=== PATIENT | female | born 1965 | race Hispanic/Latino ===

== ENCOUNTER 2017-01-16 10:55 | Emergency (ER) | payer OTHER ==
--- NOTE | 2017-01-16 12:00 | CT ---
CT BRAIN NONCONTRAST: DATE: 01-16-17 HISTORY: 51-year-old female status post head trauma due to fall, resulting in left sided headache. COMPARISON: 04-10-12 FINDINGS: On the 2013 CT, there were multiple foci of intracranial hemorrhage. The largest was in the right par ietal lobe, encroaching upon the posterior temporal and occipital lobes. That has since evolved into a large region of encephalomalacia and gliosis, with associated ex vacuo dilatation of the occipital horn and trigone of the right lateral ventricle. There was a smaller region of hemorrhage in the ante rior right temporal lobe, which has become a moderate sized region of encephalomalacia and gliosis no w, with ex vacuo dilatation of the right temporal horn. There is another new finding of moderate dila tation of the lateral, third, and fourth ventricles. There is no mass effect, midline shift, or extra axial fluid collection. No displaced acute calvarial fracture. No evidence of acute intraaxial or ext raaxial hemorrhage. The brain appears significantly different from the previous CT of 2013. There is diffuse prominence of the sulcal markings, indicating parenchymal volume loss, new since the [address] CT. IMPRESSION: 1. No acute intracranial findings. 2. Large region of right parieto-occipital encephalomalacia and gliosis, due to prior hemorrhage. 3. Moderate sized region of encephalomalacia and gliosis in the anterior right temporal lobe due to p rior hemorrhage in this location. 4. Since 2013, there has been interval development of moderate, diffuse, ventriculomegaly. This is pr esumably due to central parenchymal volume loss, but the possibility of a communicating obstructive h ydrocephalus is difficult to completely exclude. AJAY Rand POS: [facility]
--- NOTE | 2017-01-16 12:05 | RAD ---
FRONTAL RADIOGRAPH CHEST PORTABLE UPRIGHT: 01/16/2017 HISTORY: Multiple falls. Headache. COMPARISON: 11/12/2013 FINDINGS: The patient is imaged in a shallow degree of inspiration. No pneumothorax is seen. there is pulmona ry vascular prominence and mild interstitial prominence in the perihilar regions in both lung bases. No lobar consolidation or alveolar edema. IMPRESSION: Mild perihilar and bilateral lower lobe interstitial density, significance uncertain given shallow in spiration. Recommend follow-up PA and lateral chest radiograph. POS: [facility]
[2017-01-16] MEDS ORDERED: Acetaminophen 325 MG TAB ONE (12:16)
[2017-01-16 12:30] LABS: Bilirubin Negative (Negative); Blood, Urine Negative (Negative); Glucose, Urine (Dipstick) Negative (Negative); Ketone, Urine Negative (Negative); Nitrite Negative (Negative); Protein, Urine (Dipstick) Negative (Neg-Trace)
[2017-01-16 12:54] LABS: #Basophils 0.1 thou/uL (0.0-0.2); #Eosinphils 0.2 thou/uL (0.0-0.7); #Lymphocytes 2.2 thou/uL (1.20-3.40); #Monocytes 0.6 thou/uL (0.11-0.59); #Neutrophils 3.3 thou/uL (1.40-6.50); %Basophils 1.2 % (0.0-1.0); %Eosinophils 2.4 % (0.0-10.0); %Monocytes 9.5 % (0.0-10.0); Hematocrit 42.5 % (36.0-47.0); Mean Platelet Volume 9.6 fL (7.4-10.4); Red Blood Cell (RBC) Count 4.44 mill/uL (4.20-5.40); White Blood Cell (WBC) Count 6.3 thou/uL (4.8-10.8)
[2017-01-16 13:08] LABS: ALT (SGPT) 77 U/L (8-55); AST (SGOT) 67 U/L (5-34); Alkaline Phosphatase 67 U/L (40-150); Anion Gap 12 mmol/L (10-20); BUN (Urea Nitrogen) 13 mg/dL (7.0-18.7); Bilirubin, Total 0.7 mg/dL (0.2-1.2); CK (CPK) 102 U/L (29-168); Calc. Creatinine Clearance 0 mL/min (70-130); Calcium 9.4 mg/dL (7.8-10.44); Carbon Dioxide 25 mmol/L (22-29); Chloride 103 mmol/L (98-107); Estimated GFR-MDRD Greater than 90; Globulin 4.3 g/dL (2.4-3.5); Magnesium 2.2 mg/dL (1.6-2.6)
[2017-01-16 13:11] LABS: Troponin I Less than 0.010 ng/mL (< 0.028)
--- NOTE | 2017-02-10 10:42 | EKG ---
Test Reason : Blood Pressure : / mmHG Vent. Rate : 067 BPM Atrial Rate : 067 BPM P-R Int : 148 ms QRS Dur : 086 ms QT Int : 400 ms P-R-T Axes : 033 006 026 degrees QTc Int : 422 ms Normal sinus rhythm Normal ECG Confirmed by YAHAIRA AIKEN M.D. ([id number]), news video editor RISSA WARD ([id number]) on 02/10/2017 10:42:11 AM Referred By: Confirmed By:YAHAIRA AIKEN M.D.
== END 2017-01-16 15:21 | disposition left against medical advice (07) ==
LOC: ERS 10:55
DX: S09.90XA Unspecified injury of head, initial encounter (principal); K21.9 Gastro-esophageal reflux disease without esophagitis; E03.9 Hypothyroidism, unspecified; F41.9 Anxiety disorder, unspecified; F32.9 Major depressive disorder, single episode, unspecified; Z87.891 Personal history of nicotine dependence; Z91.81 History of falling; Z86.73 Personal history of transient ischemic attack (TIA), and cerebral infarction without residual deficits; W01.10XA Fall on same level from slipping, tripping and stumbling with subsequent striking against unspecified object, initial encounter
CPT/HCPCS: 70450; 71010; 80053; 81003; 82553; 83735; 84443; 84484; 85025; 93005

== ENCOUNTER 2017-02-14 10:56 | Outpatient (CLI) | payer OTHER ==
[2017-02-14 12:02] LABS: #Basophils 0.1 thou/uL (0.0-0.2); #Eosinphils 0.2 thou/uL (0.0-0.7); #Lymphocytes 1.8 thou/uL (1.20-3.40); #Monocytes 0.5 thou/uL (0.11-0.59); #Neutrophils 2.3 thou/uL (1.40-6.50); %Basophils 1.2 % (0.0-1.0); %Eosinophils 3.4 % (0.0-10.0); %Lymphocytes 37.5 % (21.0-51.0); %Neutrophils 47.9 % (42.0-75.0); Hemoglobin 14.6 g/dL (12.0-16.0); Mean Platelet Volume 8.3 fL (7.4-10.4); Platelet Count 135 thou/uL (130-400); RBC Distribution Width 12.5 % (11.5-14.5); Red Blood Cell (RBC) Count 4.43 mill/uL (4.20-5.40); White Blood Cell (WBC) Count 4.8 thou/uL (4.8-10.8)
[2017-02-14 12:08] LABS: BHCG - Serum Negative (NEGATIVE); Pregs Control Background? CLEAR/WHITE (CLR/WHITE); Pregs Control Bar Appear? YES (CONTROL BAR)
[2017-02-14 12:19] LABS: INR-International Normal Ratio 1.3; Prothrombin Time 15.9 SEC (12.0-14.7)
[2017-02-14 12:22] LABS: Anion Gap 14 mmol/L (10-20); BUN (Urea Nitrogen) 10 mg/dL (7.0-18.7); Calc. Creatinine Clearance 0 mL/min (70-130); Calcium 9.9 mg/dL (7.8-10.44); Carbon Dioxide 21 mmol/L (22-29); Chloride 107 mmol/L (98-107); Estimated GFR-MDRD Greater than 90; Glucose 98 mg/dL (70-105); Potassium 4.1 mmol/L (3.5-5.1); Sodium 138 mmol/L (136-145)
--- NOTE | 2017-02-14 12:46 | RAD ---
PA AND LATERAL VIEWS OF THE CHEST: History: Pre-operative evaluation. FINDINGS: Comparison is made with exam of 02-17-13. The heart size is borderline. The lungs are expanded without focal areas of consolidation, pneumothor ax, or pleural effusions. No acute osseous abnormalities are seen. IMPRESSION: No radiographic evidence of acute cardiopulmonary process. POS: [facility]
--- NOTE | 2017-02-22 19:32 | EKG ---
Test Reason : Blood Pressure : / mmHG Vent. Rate : 073 BPM Atrial Rate : 073 BPM P-R Int : 142 ms QRS Dur : 090 ms QT Int : 402 ms P-R-T Axes : 050 024 025 degrees QTc Int : 442 ms Normal sinus rhythm Normal ECG When compared with ECG of 16-JAN-2017 11:53, No significant change was found Confirmed by YELENA DC ([id number]) on 02/22/2017 7:31:55 PM Referred By: MAHAMED Confirmed By:YELENA DC
== END 2017-02-14 10:57 | disposition home or self-care (01) ==
LOC: LABBT 10:56
PROVIDERS: ATTEND Orthopaedic Surgery Hand Surgery
DX: Z01.818 Encounter for other preprocedural examination (principal); G81.94 Hemiplegia, unspecified affecting left nondominant side; M24.50 Contracture, unspecified joint
CPT/HCPCS: 71046; 80048; 84703; 85025; 85610; 93005; 93010

== ENCOUNTER → 2017-02-20 | Day surgery (SDC) | payer OTHER ==
[2017-02-14 11:28] VITALS: BMI 41.8
[~2017-02-20] MED LIST: Bacitracin Zinc Ointment 30 gm TUBE ONE; Betamet Acet/Betamet Na Ph 30 MG/5 ML VIAL ONE; Bupivacaine PF 0.5% 30 ML VIAL ONE; CEFAZOLIN/Water 2 GM/20 ML SYRINGE ONE; Fentanyl 100 MCG/2 ML VIAL ONE; HYDROcodone/Acetaminophen 5/325 mg Tablet ONE; HYDROmorphone 2 MG/ML VIAL SLOW IVP PRN; Ketorolac Tromethamine 30 MG/ML VIAL ONE; Lidocaine 1% PF 5 ML VIAL ONE; Meperidine HCl/PF 25 MG/ML VIAL SLOW IVP PRN; Midazolam HCl 2 mg/2 ml Vial ONE; Morphine Sulfate 2 MG/ML SYRINGE SLOW IVP PRN; Promethazine HCl 25 MG/ML VIAL SLOW IVP PRN; Propofol 200 MG/20 ML VIAL ONE
--- NOTE | 2017-02-21 14:02 | OP ---
DATE OF SURGERY: 02/20/2017 PREOPERATIVE DIAGNOSES: Metacarpophalangeal joint contracture left small finger; metacarpophalangeal joint contracture left ring finger; metacarpophalangeal joint left middle finger, all secondary to h emiplegia. POSTOPERATIVE DIAGNOSES: Metacarpophalangeal joint contracture left small finger; metacarpophalangea l joint contracture left ring finger; metacarpophalangeal joint left middle finger, all secondary to hemiplegia with tight volar plate, volar capsule, and A1 karina. PROCEDURES PERFORMED: At the right small finger: A. A1 karina release. B. Volar plate release. C. Capsulotomy metacarpophalangeal joint volar. At the right ring finger: A. Ring finger A1 karina release. B. Ring finger volar metacarpophalangeal joint plate release. C. Ring finger volar capsulotomy . At right middle finger: A. A1 karina release, right middle finger metacarpophalangeal joint. B. Volar plate release, right middle finger metacarpophalangeal joint. C. Right middle finger, volar capsulotomy metacarpophalangeal joint. TOURNIQUET TIME: 32 minutes. ESTIMATED BLOOD LOSS: 5 mL INDICATIONS: As listed above. FINDINGS: Very tight volar capsule, collaterals, and volar plate. ANESTHESIA: General LMA technique augmented by 20 mL 0.5% Marcaine block total for all 3 digits. DESCRIPTION OF PROCEDURE: After successful general endotracheal anesthesia, the patient's limb was p repped and draped. A single incision was made over the radial aspect of the middle finger at the met acarpophalangeal joint crease line to indicate the skin and subcutaneous tissue. We found the neurov ascular bundles and protected them and dissected down to the A1 karina. We released A1 karina. We r etracted the flexor tendons ulnarly first, released the volar plate, and then made a volar capsulotom y. Once medial capsulotomy, the finger which at that point could only extend to -6 degrees now was e asily straightened to 0. We then made a similar longitudinal incision shelter between the ring finger, small finger, and disse cted first radially, identified the ring finger. Neurovascular bundles performed. The mirror image procedure that was done at the right middle finger metacarpophalangeal joint; which will all free the A1 karina release, volar plate release, and volar capsulotomy of metacarpophalangeal joint. We then dissected ulnarly, saw the ulnar neurovascular bundle and brought it radially, visualized A1 karina, small finger released it. We then visualized a very tight volar plate and released it with a zigzag incision and therefore made and then followed that with a metacarpophalangeal joint capsulotomy. He re, we removed a small amount of capsule as well to perform a capsulectomy of 3 mm because this was t he tightest joint, and in order to achieve extension we had to do this. Now could easily extend with out any spring back to 20 degrees hyperextension to the metacarpophalangeal joints of all these digit s. The PIP joint easily extended to 0 degrees without any undue tension. We deflated tourniquet, obtained hemostasis, closed each wound individually with interrupted 4-0 nylo n simple pattern, then gave the remaining injection of 0.5% Marcaine with epinephrine gave a total of 20 mL between the two incisions. Bulky dressing applied with a splint in the MP joints at 0 degrees extension, PIP joints at 0, and DIP joints free. She had no complications.
== END ==
LOC: SDC 09:59
PROVIDERS: ATTEND Orthopaedic Surgery Hand Surgery
PROC: 0LN80ZZ Release Left Hand Tendon, Open Approach (ICD-10-PCS; principal; 2017-02-20)
PROC: 0RNV0ZZ Release Left Metacarpophalangeal Joint, Open Approach (ICD-10-PCS; principal; 2017-02-20)
DX: G81.94 Hemiplegia, unspecified affecting left nondominant side (principal); M24.50 Contracture, unspecified joint; M20.022 Boutonniere deformity of left finger(s); R03.0 Elevated blood-pressure reading, without diagnosis of hypertension; K21.9 Gastro-esophageal reflux disease without esophagitis; F32.9 Major depressive disorder, single episode, unspecified; F17.200 Nicotine dependence, unspecified, uncomplicated; Z79.899 Other long term (current) drug therapy; Z93.0 Tracheostomy status; Z98.890 Other specified postprocedural states; Z86.19 Personal history of other infectious and parasitic diseases
CPT/HCPCS: J0702; J1885; J2001; J2250; J2704; J3010; S0020

== ENCOUNTER 2017-02-24 14:01 | Emergency (ER) | payer OTHER | END 2017-02-24 14:56 | disposition home or self-care (01) | LOC: ERS 14:01 | DX: M96.840 Postprocedural hematoma of a musculoskeletal structure following a musculoskeletal system procedure (principal); M96.830 Postprocedural hemorrhage of a musculoskeletal structure following a musculoskeletal system procedure; M96.89 Other intraoperative and postprocedural complications and disorders of the musculoskeletal system; K21.9 Gastro-esophageal reflux disease without esophagitis; K59.00 Constipation, unspecified; E03.9 Hypothyroidism, unspecified; D64.9 Anemia, unspecified; F41.9 Anxiety disorder, unspecified; F32.9 Major depressive disorder, single episode, unspecified | CPT/HCPCS: 99283 ==

== ENCOUNTER 2017-03-20 13:09 | Emergency (ER) | payer OTHER | END 2017-03-20 15:44 | disposition home or self-care (01) | LOC: ERS 13:09 | DX: Z48.817 Encounter for surgical aftercare following surgery on the skin and subcutaneous tissue (principal); K21.9 Gastro-esophageal reflux disease without esophagitis; E03.9 Hypothyroidism, unspecified; F41.9 Anxiety disorder, unspecified; F32.9 Major depressive disorder, single episode, unspecified; K59.00 Constipation, unspecified; Z86.73 Personal history of transient ischemic attack (TIA), and cerebral infarction without residual deficits | CPT/HCPCS: 99283 ==

== ENCOUNTER 2017-09-27 12:55 | Outpatient (CLI) | payer OTHER ==
--- NOTE | 2017-10-01 14:05 | MMO ---
BILATERAL DIGITAL SCREENING MAMMOGRAMS: Date: 09/27/17 HISTORY: 52-year-old female presents for digital screening mammogram. COMPARISON: 06/22/14. FINDINGS: This patient's mammogram was interpreted with the assistance of computer-aided detection. Scattered areas of fibroglandular density are noted bilaterally. There is some stable bilateral paren chymal density asymmetries. No direct or indirect evidence of malignancy. IMPRESSION: BIRADS 2: Benign Finding(s) Continue routine screening. POS: [facility]
== END 2017-09-27 12:56 | disposition home or self-care (01) ==
LOC: SCSMAMMO 12:55
PROVIDERS: ATTEND Family Medicine
DX: Z12.31 Encounter for screening mammogram for malignant neoplasm of breast (principal)
CPT/HCPCS: 77067

== ENCOUNTER 2017-12-09 19:54 | Emergency (ER) | payer OTHER ==
--- NOTE | 2017-12-09 21:30 | RAD ---
LEFT SHOULDER THREE VIEWS: History: Fall. Left shoulder injury. FINDINGS: Acromioclavicular and glenohumeral alignment are maintained. No acute fracture or dislocation. Old le ft rib fractures. IMPRESSION: No acute osseous abnormalities are demonstrated. POS: [facility]
--- NOTE | 2017-12-09 22:17 | CT ---
CT HEAD NONCONTRAST: History: Fall. Head injury. Comparison: 01-16-17 FINDINGS: There is no evidence of acute intracranial hemorrhage. 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 Diffuse cortical atrophy. There is no mass effect or shift of midline structures. Visualized paranasal sinuses remain well aerated. IMPRESSION: Chronic type findings are stable. No acute intracranial abnormalities are demonstrated. POS: [facility]
--- NOTE | 2017-12-09 22:29 | CT ---
CT CERVICAL SPINE: Technique: Multiple axial images were obtained through the cervical with multiplanar reconstructions. History: Fall with injury to neck. Comparison: Cervical spine CT, 04-07-12 FINDINGS: There are degenerative changes at C5-6. There is loss of disc space with hypertrophic spurring and po sterior spondylosis. There is mild retrolisthesis at C5 on C6 which was present on the 2013 exam. Sli ght anterior wedging of C6 associated with the degenerative change. There is no evidence of acute fra cture identified. IMPRESSION: Degenerative changes at C5-6 as described. No evidence of acute fracture. POS: [facility]
== END 2017-12-09 22:58 | disposition home or self-care (01) ==
LOC: ERS 19:54
DX: S00.03XA Contusion of scalp, initial encounter (principal); S40.012A Contusion of left shoulder, initial encounter; K21.9 Gastro-esophageal reflux disease without esophagitis; E03.9 Hypothyroidism, unspecified; D64.9 Anemia, unspecified; F41.9 Anxiety disorder, unspecified; F32.9 Major depressive disorder, single episode, unspecified; Z86.73 Personal history of transient ischemic attack (TIA), and cerebral infarction without residual deficits; W01.198A Fall on same level from slipping, tripping and stumbling with subsequent striking against other object, initial encounter; Y92.481 Parking lot as the place of occurrence of the external cause
CPT/HCPCS: 70450; 72125

== ENCOUNTER 2018-03-10 09:24 | Emergency (ER) | payer OTHER ==
--- NOTE | 2018-03-10 11:12 | RAD ---
RADIOGRAPH CHEST 2 VIEWS: HISTORY: A 52-year-old female with a cough. FINDINGS: The thoracic aorta is tortuous and ectatic. There is no evidence of air space density, pneumothorax, or pulmonary edema. There is no cardiomegaly or pleural effusion. IMPRESSION: 1) No acute cardiopulmonary findings. 2) Ectasia of thoracic aorta. jodi [] POS: [facility]
== END 2018-03-10 11:36 | disposition home or self-care (01) ==
LOC: ERS 09:24
DX: R05 Cough (principal); R11.0 Nausea; Z86.73 Personal history of transient ischemic attack (TIA), and cerebral infarction without residual deficits; K21.9 Gastro-esophageal reflux disease without esophagitis; E03.9 Hypothyroidism, unspecified; D64.9 Anemia, unspecified; F41.9 Anxiety disorder, unspecified; F32.9 Major depressive disorder, single episode, unspecified
CPT/HCPCS: 71046; 87804

== ENCOUNTER 2019-04-30 13:24 | Outpatient (CLI) | payer OTHER ==
--- NOTE | 2019-04-30 14:48 | MMO ---
Bilateral MAMMO Bilat Screen [facility]DI. CLINICAL HISTORY: Patient is 53 years old and is seen for screening. The patient has no family history of breast cancer. The patient has no personal history of cancer. VIEWS: The views performed were: bilateral craniocaudal and bilateral mediolateral oblique. FILMS COMPARED: The present examination has been compared to prior imaging studies performed at [facility] on 09/27/2017, and at [facility] on 06/22/2014. This study has been interpreted with the assistance of computer-aided detection. MAMMOGRAM FINDINGS: There are scattered fibroglandular densities. There are no suspicious masses, suspicious calcifications, or new areas of architectural distortion. IMPRESSION: THERE IS NO MAMMOGRAPHIC EVIDENCE OF MALIGNANCY. A ROUTINE FOLLOW-UP MAMMOGRAM IN 1 YEAR IS RECOMMENDED. ACR BI-RADS Category 1 - Negative MAMMOGRAPHY NOTE: 1. A negative mammogram report should not delay a biopsy if a dominant of clinically suspicious mass is present. 2. Approximately 10% to 15% of breast cancers are not detected by mammography. 3. Adenosis and dense breasts may obscure an underlying neoplasm. Reported by: HIRA ALVES MD Electonically Signed: [id number]
== END 2019-04-30 13:25 | disposition home or self-care (01) ==
LOC: BICMAMMO 13:24
PROVIDERS: ATTEND Family Medicine
DX: Z12.31 Encounter for screening mammogram for malignant neoplasm of breast (principal)
CPT/HCPCS: 77067

== ENCOUNTER 2020-08-03 11:11 | Outpatient (CLI) | payer MEDICAID | END 2020-08-03 11:12 | disposition home or self-care (01) | LOC: BICMAMMO 11:11 | PROVIDERS: ATTEND Family Medicine | DX: Z12.31 Encounter for screening mammogram for malignant neoplasm of breast (principal) | CPT/HCPCS: 77067 ==

== ENCOUNTER 2021-08-18 13:03 | Outpatient (CLI) | payer OTHER | END 2021-08-18 13:04 | disposition home or self-care (01) | LOC: MERGE 13:03 → BICMAMMO 13:03 | PROVIDERS: ATTEND Family Medicine | DX: Z12.31 Encounter for screening mammogram for malignant neoplasm of breast (principal) | CPT/HCPCS: 77067 ==

== ENCOUNTER 2021-10-31 11:55 | Emergency (ER) | payer OTHER | END 2021-10-31 12:56 | disposition left against medical advice (07) | LOC: ERS 11:55 | DX: Z53.21 Procedure and treatment not carried out due to patient leaving prior to being seen by health care provider (principal) ==

== ENCOUNTER 2021-11-08 09:30 | Outpatient (CLI) | payer OTHER | END 2021-11-08 09:31 | disposition home or self-care (01) | LOC: BICULT 09:30 | PROVIDERS: ATTEND Family Medicine | DX: K74.69 Other cirrhosis of liver (principal); N28.1 Cyst of kidney, acquired | CPT/HCPCS: 76705 ==

== ENCOUNTER 2022-03-07 11:11 | Emergency (ER) | payer OTHER | END 2022-03-07 12:53 | disposition home or self-care (01) | LOC: ERS 11:11 | DX: S01.01XA Laceration without foreign body of scalp, initial encounter (principal); I10 Essential (primary) hypertension; W19.XXXA Unspecified fall, initial encounter; Y92.009 Unspecified place in unspecified non-institutional (private) residence as the place of occurrence of the external cause | CPT/HCPCS: 70450 ==

== ENCOUNTER 2022-03-22 08:48 | Emergency (ER) | payer OTHER | END 2022-03-22 10:32 | disposition home or self-care (01) | LOC: ERS 08:48 | DX: S01.01XD Laceration without foreign body of scalp, subsequent encounter (principal); I10 Essential (primary) hypertension; Z79.899 Other long term (current) drug therapy ==

== ENCOUNTER 2022-09-20 06:59 | Outpatient (CLI) | payer OTHER | END 2022-09-20 07:00 | disposition home or self-care (01) | LOC: BICULT 06:59 | PROVIDERS: ATTEND Physician Assistant Medical | DX: B18.2 Chronic viral hepatitis C (principal); K74.60 Unspecified cirrhosis of liver; S06.9XAA Unspecified intracranial injury with loss of consciousness status unknown, initial encounter | CPT/HCPCS: 76705 ==

== ENCOUNTER 2022-10-23 09:46 | Outpatient (CLI) | payer OTHER | END 2022-10-23 09:47 | disposition home or self-care (01) | LOC: RAD 09:46 | PROVIDERS: ATTEND Family Medicine | DX: Z11.1 Encounter for screening for respiratory tuberculosis (principal); J98.4 Other disorders of lung | CPT/HCPCS: 71046 ==

== ENCOUNTER 2022-11-12 17:52 | Emergency (ER) | payer OTHER ==
[2022-11-12] MEDS ORDERED: Proparacaine 0.5% Opth 15 ML BOT ONE (18:38)
[2022-11-12] MEDS ORDERED: Fluorescein Opthalmic Strip ONE (18:38)
== END 2022-11-12 19:19 | disposition home or self-care (01) ==
LOC: ERS 17:52
DX: H57.12 Ocular pain, left eye (principal); I10 Essential (primary) hypertension; Z79.899 Other long term (current) drug therapy
CPT/HCPCS: 99283

== ENCOUNTER 2023-07-06 18:48 | Emergency (ER) | payer OTHER ==
[2023-07-06 21:03] LABS: #Basophils 0.03 10x3/uL (0.0-0.2); %Basophils 0.7 % (0.0-1.0); %Eosinophils 4.1 % (0.0-10.0); %Monocytes 13.7 % (0.0-10.0); %Neutrophils 40.3 % (42.0-75.0); Hematocrit 39.1 % (36.0-47.0); Hemoglobin 13.3 g/dL (12.0-16.0); Mean Corpuscular Hemoglobin 30.5 pg (27.0-31.0); Mean Corpuscular Volume 89.7 fL (78.0-98.0); Platelet Count 140 10x3/uL (130-400); Red Blood Cell (RBC) Count 4.36 mill/uL (4.20-5.40)
[2023-07-06 21:03] LABS: Influenza A by NAA Not Detected (NotDetected); Influenza B by NAA Not Detected (NotDetected); SARS-CoV-2 NAA Rapid Test DETECTED (NotDetected)
[2023-07-06 21:19] LABS: ALT (SGPT) 21 U/L (8-55); AST (SGOT) 27 U/L (5-34); Albumin 3.4 g/dL (3.5-5.0); Alkaline Phosphatase 57 U/L (40-110); Anion Gap 12 mmol/L (10-20); BUN (Urea Nitrogen) 11 mg/dL (9.8-20.1); Bilirubin, Total 0.5 mg/dL (0.2-1.2); Calc. Creatinine Clearance 0 mL/min (70-130); Carbon Dioxide 24 mmol/L (22-29); Chloride 108 mmol/L (98-107); Estimated GFR 93; Globulin 3.8 g/dL (2.4-3.5); Glucose 113 mg/dL (70-105); Potassium 3.9 mmol/L (3.5-5.1); Protein, Total 7.2 g/dL (6.0-8.3); Sodium 140 mmol/L (136-145)
[2023-07-06 21:24] LABS: Troponin I Less than 0.010 ng/mL (< 0.028)
[2023-07-06] MEDS ORDERED: Furosemide 100 MG (10 mL) VIAL ONE (22:15)
== END 2023-07-07 00:57 | disposition home or self-care (01) ==
LOC: ERS 18:48
DX: U07.1 COVID-19 (principal); I11.0 Hypertensive heart disease with heart failure; I50.9 Heart failure, unspecified
CPT/HCPCS: 71045; 80053; 83880; 84484; 85025; 93005; 96374; J1940

== ENCOUNTER 2023-08-17 08:50 | Outpatient (CLI) | payer OTHER | END 2023-08-17 08:51 | disposition home or self-care (01) | LOC: BICULT 08:50 | PROVIDERS: ATTEND Physician Assistant Medical | DX: Z12.11 Encounter for screening for malignant neoplasm of colon (principal); K74.60 Unspecified cirrhosis of liver; B18.2 Chronic viral hepatitis C; S06.9XAA Unspecified intracranial injury with loss of consciousness status unknown, initial encounter | CPT/HCPCS: 76705 ==

== ENCOUNTER 2023-09-05 03:47 | Emergency (ER) | payer OTHER ==
[2023-09-05] MEDS ORDERED: valACYclovir 500 MG TAB ONE (04:45)
[2023-09-05] MEDS ORDERED: predniSONE 20 MG TAB ONE (04:45)
== END 2023-09-05 06:14 ==
LOC: ERS 03:47
DX: G51.0 Bell's palsy (principal); I10 Essential (primary) hypertension
CPT/HCPCS: 99284; J7512

== ENCOUNTER 2023-12-26 06:06 | Inpatient (IN) | payer OTHER ==
[2023-12-26 07:54] LABS: #Basophils 0.04 10x3/uL (0.0-0.2); %Basophils 0.9 % (0.0-1.0); %Eosinophils 6.7 % (0.0-10.0); %Lymphocytes 30.2 % (21.0-51.0); %Monocytes 15.8 % (0.0-10.0); %Neutrophils 46.4 % (42.0-75.0); ALT (SGPT) 19 U/L (8-55); AST (SGOT) 24 U/L (5-34); Albumin 3.4 g/dL (3.5-5.0); Alkaline Phosphatase 65 U/L (40-110); Anion Gap 12 mmol/L (10-20); BUN (Urea Nitrogen) 11 mg/dL (9.8-20.1); Calc. Creatinine Clearance 0 mL/min (70-130); Calcium 8.6 mg/dL (7.8-10.44); Carbon Dioxide 28 mmol/L (22-29); Chloride 102 mmol/L (98-107); Estimated GFR 90; Globulin 4.1 g/dL (2.4-3.5); Glucose 119 mg/dL (70-105); Hematocrit 40.8 % (36.0-47.0); Magnesium 2.1 mg/dL (1.6-2.6); Mean Corpuscular HGB CONC 34.3 g/dL (32.0-36.0); Mean Corpuscular Hemoglobin 29.8 pg (27.0-31.0); Mean Corpuscular Volume 86.8 fL (78.0-98.0); Mean Platelet Volume 9.9 fL (7.4-10.4); Platelet Count 137 10x3/uL (130-400); Potassium 3.4 mmol/L (3.5-5.1); Protein, Total 7.5 g/dL (6.0-8.3); RBC Distribution Width 12.9 % (11.5-14.5); Sodium 139 mmol/L (136-145)
[2023-12-26 08:00] LABS: Troponin I Less than 0.010 ng/mL (< 0.028)
[2023-12-26 08:01] LABS: INR-International Normal Ratio 1.1; Prothrombin Time 14.4 sec (12.0-14.7)
[2023-12-26 08:02] LABS: PTT 31.4 sec (22.9-36.1)
[2023-12-26] MEDS ORDERED: Furosemide 40 MG (4 mL) VIAL ONE (08:37)
[2023-12-26] MEDS ORDERED: Ondansetron ODT 4 MG TAB PO PRN (10:34)
[2023-12-26] MEDS ORDERED: Senokot S 8.6-50 MG TAB PO PRN (10:34)
[2023-12-26] MEDS ORDERED: Electrolyte Replacement Protocol FS PRN (11:00)
[2023-12-26] MEDS ORDERED: Furosemide 20 MG (2 mL) VIAL ONE (14:53)
[2023-12-26] MEDS ORDERED: Potassium Chloride 20 MEQ TAB ONE (14:53)
[2023-12-26] MEDS: Potassium Chloride 20 MEQ TAB PO SCH (14:57)
[2023-12-26] MEDS: Furosemide 100 MG (10 mL) VIAL SLOW IVP SCH (15:00)
[2023-12-26] MEDS: Cephalexin 250 MG CAP PO SCH (17:32)
[2023-12-26] MEDS: FLU (Fluarix Triv) TS24-25(6MOS UP)/PF 45 MCG/0.5 ML Syringe IM ONE (17:32)
[2023-12-26] MEDS: Acetaminophen 325 MG TAB PO PRN (19:53)
[2023-12-26] MEDS: Aripiprazole 10 MG TAB PO SCH (21:31)
[2023-12-26] MEDS: Melatonin 3 MG TAB PO SCH (21:31)
[2023-12-26] MEDS: traZODone HCl 50 MG TAB PO SCH (21:31)
[2023-12-27] MEDS: Furosemide 40 MG (4 mL) VIAL SLOW IVP SCH (05:23)
[2023-12-27 06:52] LABS: #Basophils 0.03 10x3/uL (0.0-0.2); %Basophils 0.6 % (0.0-1.0); %Eosinophils 4.6 % (0.0-10.0); %Lymphocytes 24.1 % (21.0-51.0); %Monocytes 15.6 % (0.0-10.0); %Neutrophils 54.9 % (42.0-75.0); Hematocrit 41.3 % (36.0-47.0); Mean Corpuscular HGB CONC 33.9 g/dL (32.0-36.0); Mean Corpuscular Hemoglobin 29.5 pg (27.0-31.0); Mean Corpuscular Volume 86.9 fL (78.0-98.0); Mean Platelet Volume 10.3 fL (7.4-10.4); Platelet Count 133 10x3/uL (130-400); RBC Distribution Width 13.1 % (11.5-14.5); Red Blood Cell (RBC) Count 4.75 mill/uL (4.20-5.40)
[2023-12-27 06:53] LABS: Anion Gap 13 mmol/L (10-20); BUN (Urea Nitrogen) 12 mg/dL (9.8-20.1); Calc. Creatinine Clearance 145 mL/min (70-130); Carbon Dioxide 28 mmol/L (22-29); Chloride 101 mmol/L (98-107); Estimated GFR 94; Glucose 122 mg/dL (70-105); Potassium 3.7 mmol/L (3.5-5.1); Sodium 138 mmol/L (136-145)
[2023-12-27] MEDS: Enoxaparin 40 MG (0.4 mL) SYRINGE SC SCH (09:44)
[2023-12-27] MEDS: Mirabegron ER 25 MG ER.TAB PO SCH (09:44)
[2023-12-27] MEDS: hydrOXYzine Pamoate 25 mg Capsule PO SCH (09:44)
[2023-12-27] MEDS: Gabapentin 300 MG CAP PO SCH (09:45)
[2023-12-27] MEDS: Spironolactone 25 MG TAB PO SCH (09:45)
[2023-12-27] MEDS: Escitalopram Oxalate 20 mg Tablet PO SCH (09:45)
[2023-12-28 04:32] LABS: #Basophils 0.03 10x3/uL (0.0-0.2); %Basophils 0.5 % (0.0-1.0); %Eosinophils 6.4 % (0.0-10.0); %Lymphocytes 33.1 % (21.0-51.0); %Monocytes 15.2 % (0.0-10.0); %Neutrophils 44.6 % (42.0-75.0); Hematocrit 40.3 % (36.0-47.0); Hemoglobin 13.7 g/dL (12.0-16.0); Mean Corpuscular Hemoglobin 29.7 pg (27.0-31.0); Mean Corpuscular Volume 87.2 fL (78.0-98.0); Mean Platelet Volume 10.3 fL (7.4-10.4); Platelet Count 128 10x3/uL (130-400); RBC Distribution Width 12.8 % (11.5-14.5); Red Blood Cell (RBC) Count 4.62 mill/uL (4.20-5.40)
[2023-12-28 04:44] LABS: Anion Gap 13 mmol/L (10-20); BUN (Urea Nitrogen) 13 mg/dL (9.8-20.1); Calc. Creatinine Clearance 153 mL/min (70-130); Calcium 8.8 mg/dL (7.8-10.44); Carbon Dioxide 25 mmol/L (22-29); Chloride 100 mmol/L (98-107); Estimated GFR 101; Glucose 170 mg/dL (70-105); Potassium 3.2 mmol/L (3.5-5.1); Sodium 135 mmol/L (136-145)
[2023-12-28 05:10] VITALS: BMI 41.3
[2023-12-28] MEDS: Potassium Bicarbonate/Cit Ac 20 MEQ TAB PO SCH (08:32)
[2023-12-28 09:28] VITALS: BP 108/59; TEMP 98
== END 2023-12-28 16:17 | DRG 291 ==
LOC: ERS 06:06 → ERHOLD 10:49 → T4-B 15:58 → OBSVTOIN 12-28 08:28
PROVIDERS: ADMIT Internal Medicine; ATTEND Hospitalist
DX: I11.0 Hypertensive heart disease with heart failure (principal); I50.33 Acute on chronic diastolic (congestive) heart failure; L03.116 Cellulitis of left lower limb; Z68.41 Body mass index [BMI] 40.0-44.9, adult; Z90.49 Acquired absence of other specified parts of digestive tract; F41.9 Anxiety disorder, unspecified; F32.A Depression, unspecified; E66.01 Morbid (severe) obesity due to excess calories; E87.6 Hypokalemia; Z79.899 Other long term (current) drug therapy
CPT/HCPCS: 36415; 71045; 80048; 80053; 83735; 83880; 84443; 84484; 85025; 85610; 85730; 90656; 93005; 93970; 96374; J1650; J1940; Q0177

== ENCOUNTER 2024-01-31 06:47 | Inpatient (IN) | payer OTHER ==
[2024-01-31] MEDS ORDERED: Ipratropium/Albuterol 3 ML NEB ONE (07:56)
[2024-01-31 08:10] LABS: #Basophils Less than 0.03 10x3/uL (0.0-0.2); %Basophils 0.3 % (0.0-1.0); %Eosinophils 1.3 % (0.0-10.0); %Lymphocytes 11.8 % (21.0-51.0); %Monocytes 11.3 % (0.0-10.0); %Neutrophils 74.6 % (42.0-75.0); Hemoglobin 14.2 g/dL (12.0-16.0); Mean Corpuscular HGB CONC 34.6 g/dL (32.0-36.0); Mean Corpuscular Hemoglobin 29.8 pg (27.0-31.0); Mean Corpuscular Volume 86.1 fL (78.0-98.0); Mean Platelet Volume 10.2 fL (7.4-10.4); Platelet Count 81 10x3/uL (130-400); RBC Distribution Width 12.9 % (11.5-14.5); Red Blood Cell (RBC) Count 4.76 mill/uL (4.20-5.40)
[2024-01-31 08:21] LABS: ALT (SGPT) 20 U/L (8-55); AST (SGOT) 42 U/L (5-34); Albumin 3.2 g/dL (3.5-5.0); Alkaline Phosphatase 54 U/L (40-110); Anion Gap 15 mmol/L (10-20); BUN (Urea Nitrogen) 9 mg/dL (9.8-20.1); Bilirubin, Total 0.7 mg/dL (0.2-1.2); Calc. Creatinine Clearance 0 mL/min (70-130); Calcium 8.7 mg/dL (7.8-10.44); Carbon Dioxide 21 mmol/L (22-29); Chloride 103 mmol/L (98-107); Estimated GFR 91; Globulin 4.6 g/dL (2.4-3.5); Glucose 123 mg/dL (70-105); Potassium 4.4 mmol/L (3.5-5.1); Protein, Total 7.8 g/dL (6.0-8.3); Sodium 135 mmol/L (136-145)
[2024-01-31 10:29] LABS: Bacteria/HPF 4+ HPF (None Seen); Bilirubin Negative (Negative); Blood, Urine Negative (Negative); CAUTI Indications for Culture Dysuria,urgency,freq; Clarity Turbid (Clear); Glucose, Urine (Dipstick) Normal (Negative); Ketone, Urine Negative (Negative); Leukocyte 250 Leu/uL (Negative); Nitrite 2+ (Negative); Protein, Urine (Dipstick) 30 mg/dL (Neg-Trace); RBC/HPF 0-3 HPF (0-3); Specific Gravity, Urine 1.026 (1.002-1.036); Squamous Epithelial None Seen HPF (0-3); Urobilinogen Normal mg/dL (Less than 2); WBC/HPF Greater than 50 HPF (0-3)
[2024-01-31 10:30] LABS: Urine Culture Reflex Yes Yes
[2024-01-31] MEDS ORDERED: cefTRIAXone (ROCEPHIN) 2 GM VIAL ONE (11:06)
[2024-01-31] MEDS ORDERED: Sodium Chloride 0.9% 100 ML ONE (11:06)
[2024-01-31] MEDS ORDERED: Ondansetron ODT 4 MG TAB PO PRN (11:18)
[2024-01-31] MEDS ORDERED: Ondansetron PF 4 MG/2 ML Vial IVP PRN (11:18)
[2024-01-31] MEDS: Acetaminophen 325 MG TAB PO PRN (15:09)
[2024-01-31] MEDS: Famotidine 20 MG TAB PO SCH (21:50)
[2024-02-01] MEDS: Melatonin 3 MG TAB PO SCH (00:49)
[2024-02-01 05:19] LABS: Hemoglobin 12.5 g/dL (12.0-16.0); Mean Corpuscular HGB CONC 34.7 g/dL (32.0-36.0); Mean Corpuscular Hemoglobin 29.7 pg (27.0-31.0); Mean Corpuscular Volume 85.5 fL (78.0-98.0); Red Blood Cell (RBC) Count 4.21 mill/uL (4.20-5.40)
[2024-02-01 05:20] LABS: #Basophils Less than 0.03 10x3/uL (0.0-0.2); %Basophils 0.3 % (0.0-1.0); %Eosinophils 2.1 % (0.0-10.0); %Neutrophils 69.3 % (42.0-75.0); Mean Platelet Volume 10.7 fL (7.4-10.4); Platelet Count 86 10x3/uL (130-400); RBC Distribution Width 13.1 % (11.5-14.5)
[2024-02-01 06:01] LABS: Anion Gap 11 mmol/L (10-20); BUN (Urea Nitrogen) 10 mg/dL (9.8-20.1); Calc. Creatinine Clearance 0 mL/min (70-130); Calcium 8.3 mg/dL (7.8-10.44); Carbon Dioxide 26 mmol/L (22-29); Chloride 103 mmol/L (98-107); Estimated GFR 94; Glucose 114 mg/dL (70-105); Sodium 137 mmol/L (136-145)
[2024-02-01] MEDS: Enoxaparin 40 MG (0.4 mL) SYRINGE SC SCH (07:05)
[2024-02-01] MEDS: FLU (Fluarix Triv) TS24-25(6MOS UP)/PF 45 MCG/0.5 ML Syringe IM ONE (07:05)
[2024-02-01] MEDS: cefTRIAXone\\ROCEPHIN 1 GM in Sodium Chloride 0.9% 100 ML IVPB SCH (12:45)
[2024-02-02 05:34] LABS: Influenza A by NAA DETECTED (NotDetected); Influenza B by NAA Not Detected (NotDetected); SARS-CoV-2 NAA Rapid Test Not Detected (NotDetected)
[2024-02-02 10:58] VITALS: BP 122/57; TEMP 98.7
== END 2024-02-02 11:08 | DRG 690 ==
LOC: ERS 06:47 → ERHOLD 11:05 → T4-B 13:27 → OBSVTOIN 02-01 16:55
PROVIDERS: ADMIT Internal Medicine; ATTEND Internal Medicine
DX: N39.0 Urinary tract infection, site not specified (principal); Z68.41 Body mass index [BMI] 40.0-44.9, adult; I69.854 Hemiplegia and hemiparesis following other cerebrovascular disease affecting left non-dominant side; J11.1 Influenza due to unidentified influenza virus with other respiratory manifestations; Z79.899 Other long term (current) drug therapy; F41.9 Anxiety disorder, unspecified; F32.A Depression, unspecified; E66.9 Obesity, unspecified; Z90.49 Acquired absence of other specified parts of digestive tract
CPT/HCPCS: 36415; 51701; 70450; 71045; 72125; 80048; 80053; 81001; 85025; 87077; 87086; 87186; 93005; 96365; J0696; J7620

== ENCOUNTER 2024-11-27 13:16 | Emergency (ER) | payer OTHER ==
[2024-11-27 16:09] LABS: #Basophils 0.03 10x3/uL (0.0-0.2); #Eosinophils 0.15 10x3/uL (0.0-0.7); #Monocytes 0.50 10x3/uL (0.11-0.59); #Neutrophils 3.83 10x3/uL (1.40-6.50); %Basophils 0.5 % (0.0-1.0); %Eosinophils 2.6 % (0.0-10.0); %Lymphocytes 20.6 % (21.0-51.0); %Monocytes 8.8 % (0.0-10.0); %Neutrophils 67.3 % (42.0-75.0); Hematocrit 44.4 % (36.0-47.0); Hemoglobin 15.0 g/dL (12.0-16.0); Mean Corpuscular Hemoglobin 30.0 pg (27.0-31.0); Mean Corpuscular Volume 88.8 fL (78.0-98.0); Platelet Count 160 10x3/uL (130-400); Red Blood Cell (RBC) Count 5.00 mill/uL (4.20-5.40); White Blood Cell (WBC) Count 5.69 10x3/uL (4.8-10.8)
[2024-11-27 16:34] LABS: ALT (SGPT) 10 U/L (Less than 34); AST (SGOT) 23 U/L (11-34); Albumin 3.5 g/dL (3.1-4.5); Alkaline Phosphatase 75 U/L (40-110); Anion Gap 13 mmol/L (10-20); BUN (Urea Nitrogen) 4 mg/dL (9.8-20.1); Bilirubin, Total 0.6 mg/dL (0.3-1.2); Calc. Creatinine Clearance 0 mL/min (70-130); Calcium 9.1 mg/dL (7.8-10.44); Carbon Dioxide 30 mmol/L (22-29); Chloride 101 mmol/L (98-107); Globulin 4.5 g/dL (2.4-3.5); Glucose 101 mg/dL (70-105); Potassium 3.8 mmol/L (3.5-5.1); Sodium 140 mmol/L (136-145)
[2024-11-27 16:35] LABS: Acetaminophen Less than 10 mcg/mL (Less than 10); Salicylate Less than 8.0 mg/dL (Less than 8.0)
== END 2024-11-27 19:08 ==
LOC: ERS 13:16
DX: Z00.8 Encounter for other general examination (principal); I10 Essential (primary) hypertension; Z79.899 Other long term (current) drug therapy; Z86.73 Personal history of transient ischemic attack (TIA), and cerebral infarction without residual deficits
CPT/HCPCS: 80053; 80307; 85025; 93005; 99285